=== PATIENT | male | born 1935 | race Caucasian/White ===

== ENCOUNTER → 2017-01-03 | Outpatient (CLI) | payer MEDICARE, OTHER ==
--- NOTE | ~2017-01-03 | ENPV ---
Carotid Duplex Study Demographics Patient Name LEAH READ V Date of Study 01/03/2017 Patient Number [id number] Gender Male Date of 1935 Age 81 Visit Number [id number] Height Accession Number [id number] Weight Room Number BSA BMI Referring Abrahan Garcia MD Interpreting Yuri Lazcano MD Physician Physician Physician Ordering Physician Abrahan Garcia MD [employer] Jose Cruz Ceja BS, RT Conclusions Summary The right vertebral artery is present with antegrade flow. The left vertebral artery is present with antegrade flow. The right internal carotid artery has mild, 1-39%, plaque and stenosis. The left internal carotid artery has moderate, 40-59%, plaque and stenosis. Left external carotid peak systolic velocity of 267 cm/s. Procedure Type of Study: Cerebral:Carotid, Carotid Doppler Bilateral. Indications for Study:Carotid Bruit. Patient Status:Routine. Study Location:Vascular Lab. Technical Quality:Adequate visualization. Velocities are measured in cm/s ; Diameters are measured in cm Carotid Right Measurements Carotid Left Measurements + +--------+--------+ + + + +--------+ --------+ + + !Location !PSV !EDV !Angle !%Stenosis ! !Location !PSV ! EDV !Angle !%Stenosis ! + +--------+--------+ + + + +--------+ --------+ + + !Prox CCA !89 !21 !60 ! ! !Prox CCA !76 ! 19 !60 ! ! + +--------+--------+ + + + +--------+ --------+ + + !Dist CCA !75 !22 !60 ! ! !Dist CCA !71 ! 21 !60 ! ! + +--------+--------+ + + + +--------+ --------+ + + !Prox ICA !75 !14 !60 ! ! !Prox ICA !118 ! 44 !60 ! ! + +--------+--------+ + + + +--------+ --------+ + + !Dist ICA !80 !24 !60 ! ! !Dist ICA !106 ! 33 !60 ! ! + +--------+--------+ + + + +--------+ --------+ + + !Prox ECA !60 ! !60 ! ! !Prox ECA !159 ! !60 ! ! + +--------+--------+ + + + +--------+ --------+ + + !Vertebral !50 ! !60 ! ! !Vertebral !40 ! !60 ! ! + +--------+--------+ + + + +--------+ --------+ + + !Subclavian !89 ! !60 ! ! !Subclavian !171 ! !60 ! ! + +--------+--------+ + + + +--------+ --------+ + + - There is antegrade vertebral flow noted on the right side. - There is antegrade verte bral flow noted on the left side. - Add'l Measurements:ICAPSV/CCAPSV 0.9.ICAEDV/CCAEDV 1.12. - Add'l Measurements:ICAPS V/CCAPSV 1.55.ICAEDV/CCAEDV 2.34. Signature dtt: SONI CHILDS dtd: 01/03/17 [facility] Physician Self Edit
== END | disposition disaster alternative care site (69) ==
LOC: GCAR 09:41
DX: I25.10 Atherosclerotic heart disease of native coronary artery without angina pectoris (principal); I65.23 Occlusion and stenosis of bilateral carotid arteries